=== PATIENT | male | born 2000 | race Hispanic/Latino ===

== ENCOUNTER 2020-10-11 20:59 | Emergency (ER) | payer OTHER ==
[~2020-10-11] VITALS: Ht 172.7 cm; Wt 99.8 kg
[2020-10-11] MEDS ORDERED: ACET1TAB25 PO (21:27)
[2020-10-11] MEDS ORDERED: AMOX875T2 PO (21:27)
[2020-10-11] MEDS ORDERED: CORTSOL AD (21:27)
[2020-10-11] MEDS ORDERED: ACETAMINOPHEN WITH CODEINE 1 TAB TAB PO ONE (21:30)
[2020-10-11] MEDS ORDERED: CEFTRIAXONE 1G VIAL IVP ONE (21:30)
[2020-10-11] MEDS ORDERED: LIDOCAINE HCL-MPF 1% 2ML VIAL ONE (21:43)
== END 2020-10-11 21:57 | disposition home or self-care (01) ==
LOC: EDH 20:59
DX: H65.02 Acute serous otitis media, left ear (principal); Z79.899 Other long term (current) drug therapy
CPT/HCPCS: 96374; 99283; J0696; J3490